=== PATIENT | female | born 1950 | race Caucasian/White ===

== ENCOUNTER 2018-01-16 13:22 | Emergency (ER) | payer OTHER ==
[~2018-01-16] VITALS: Ht 175.3 cm; Wt 72.6 kg
[2018-01-16] MEDS ORDERED: LEXAPRO20 MG PO (13:37)
[2018-01-16] MEDS ORDERED: PYRIDIUM100 M1 PO (13:37)
== END 2018-01-16 17:31 | disposition home or self-care (01) ==
LOC: ER 13:22
DX: N39.0 Urinary tract infection, site not specified (principal); B96.4 Proteus (mirabilis) (morganii) as the cause of diseases classified elsewhere; R31.0 Gross hematuria

== ENCOUNTER 2018-09-08 14:41 | Emergency (ER) | payer OTHER ==
[~2018-09-08] VITALS: Ht 175.3 cm; Wt 77.1 kg
[~2018-09-08 14:41] MED LIST: LEXAPRO20 MG PO; PYRIDIUM100 M1 PO
== END 2018-09-08 19:10 | disposition home or self-care (01) ==
LOC: ER 14:41
DX: J15.7 Pneumonia due to Mycoplasma pneumoniae (principal); J45.998 Other asthma; J10.1 Influenza due to other identified influenza virus with other respiratory manifestations

== ENCOUNTER 2019-08-04 18:00 | Emergency (ER) | payer OTHER ==
[~2019-08-04] VITALS: Ht 175.3 cm; Wt 72.6 kg
[2019-08-04] MEDS ORDERED: PEPCID40 MG PO (18:25)
[2019-08-04] MEDS ORDERED: LIBRAX PO (18:27)
== END 2019-08-04 22:14 | disposition home or self-care (01) ==
LOC: ER 18:00
DX: L03.116 Cellulitis of left lower limb (principal)

== ENCOUNTER → 2020-11-20 | Outpatient (CLI) | payer OTHER ==
[~2020-11-20] MED LIST changes: +LIBRAX PO; +PEPCID40 MG PO
== END | disposition home or self-care (01) ==
LOC: SONOGRAMA 11:23
DX: N95.0 Postmenopausal bleeding (principal)